=== PATIENT | female | born 1945 | race Caucasian/White ===

== ENCOUNTER 2020-08-07 19:44 | Emergency (ER) | payer MEDICARE, OTHER ==
[~2020-08-07] VITALS: Ht 160 cm; Wt 70.3 kg
[2020-08-07] MEDS ORDERED: [UNRECOGNIZED DRUG - REMARK] (20:02)
[2020-08-07] MEDS ORDERED: OLOP2.5D5 OP (20:02)
--- NOTE | 2020-08-07 20:05 | NUR ---
Dr. Sarmiento at bedside for MSE.
[2020-08-07] MEDS ORDERED: TETRACAINE HCL 0.5% OPHT DROP 2 ML BOTTLE ONE (20:14)
[2020-08-07] MEDS ORDERED: SODIUM/POT/SOD CHL OPHT WASH 120 ML BOTTLE ONE (20:20)
[2020-08-07] MEDS ORDERED: FLUORESCEIN SODIUM 1 MG STRIP ONE (20:46)
--- NOTE | 2020-08-07 21:06 | NUR ---
Patient discharged to home in stable condition. Written and verbal after care instructions given. Patient verbalizes understanding of instructions. Stressed follow up or return to ER for worsening s/s. Patient ambulated out of ER with steady gait, no acute signs of distress, VSS, all belongings taken.
[2020-08-07 21:07] VITALS: BP 150/73
== END 2020-08-07 21:08 | disposition home or self-care (01) ==
LOC: ER 19:46
DX: H57.13 Ocular pain, bilateral (principal); T49.5X5A Adverse effect of ophthalmological drugs and preparations, initial encounter; Y92.039 Unspecified place in apartment as the place of occurrence of the external cause; E78.00 Pure hypercholesterolemia, unspecified; R03.0 Elevated blood-pressure reading, without diagnosis of hypertension; H10.10 Acute atopic conjunctivitis, unspecified eye
CPT/HCPCS: A4663